=== PATIENT | female | born 1970 | race Two or more races ===

== ENCOUNTER 2017-10-05 11:34 | Emergency (ER) | END 2017-10-05 14:21 | disposition home or self-care (01) ==

== ENCOUNTER 2018-08-02 21:30 | Emergency (ER) | payer OTHER ==
[~2018-08-02] VITALS: Ht 157.5 cm; Wt 67.6 kg
[~2018-08-02 21:30] MED LIST: CEPH-443 PO; CETI10CA PO; KETO120S3 TOP; SULF1TAB31 PO; TRIA15CR55 TOP
[2018-08-02 21:55] VITALS: Ht 157.5 cm; Wt 67.6 kg
--- NOTE | 2018-08-02 22:45 | ERD ---
ER Documentation Chief Complaint Chief Complaint L wrist lac today HPI 47-year-old female, right-handed, presents the emergency department, complaining of an accidental self-inflicted laceration on the left wrist that occurred approximately 1 hour prior to arrival while the patient was trying to open a cooking it. The patient denies distal weakness, numbness or tingling, she is able to move all fingers. ROS All systems reviewed and are negative except as per history of present illness. Medications Home Meds Active Scripts Acetaminophen* (Tylenol*) 325 Mg Tablet, 2 TAB PO Q6 PRN for PAIN AND OR ELEVATED TEMP, #20 TAB Prov:SAVITA WEAVER MD 08/02/18 Cephalexin* (Keflex*) 500 Mg Capsule, 500 MG PO BID for 5 Days, CAP Prov:SAVITA WEAVER MD 08/02/18 Sulfamethoxazole/Trimethoprim* (Bactrim Ds* Tablet) 1 Each Tablet, 1 TAB PO BID, #10 TAB Prov:BO GUZMAN PA-C 10/05/17 Cephalexin* (Keflex*) 500 Mg Capsule, 500 MG PO QID for 5 Days, CAP Prov:BO GUZMAN PA-C 10/05/17 Ketoconazole* (Ketoconazole*) 2% - 120 Ml Shampoo, 1 APPLIC TOP DAILY for 14 Days, EA WASH HAIR/SCALP AND RINSE OFF Prov:BO GUZMAN PA-C 10/05/17 Triamcinolone Acetonide (Triamcinolone Acetonide) 0.1% - 15 Gm Cream.gm., 1 APPLIC TOP BID for 14 Days, #1 TUB Prov:BO GUZMAN PA-C 10/05/17 Cetirizine Hcl* (Zyrtec*) 10 Mg Capsule, 10 MG PO DAILY, #30 TAB.CHEW Prov:BO GUZMAN PA-C 10/05/17 Allergies Allergies: Coded Allergies: No Known Allergy (Unverified , 08/02/18) PMhx/Soc Medical and Surgical Hx: pt denies Medical Hx, pt denies Surgical Hx Hx Alcohol Use: No Hx Substance Use: No Hx Tobacco Use: No FmHx Family History: diabetes; No coronary disease Physical Exam Vitals Vital Signs Date Temp Pulse Resp B/P (MAP) Pulse Ox O2 O2 Flow FiO2 Time Delivery Rate 08/02/18 98.5 86 18 146/82 98 21:55 (103) Physical Exam Const: No acute distress Head: Atraumatic Eyes: Normal Conjunctiva ENT: Normal External Ears, Nose and Mouth. Neck: Full range of motion. No meningismus. Resp: Clear to auscultation bilaterally Cardio: Regular rate and rhythm, no murmurs Abd: Soft, non tender, non distended. Normal bowel sounds Skin: Left wrist: 0.5 cm linear laceration, vertical, no active bleeding, no foreign body seen, no nerve or tendon injury. Back: No midline or flank tenderness Ext: No cyanosis, or edema Neur: Awake and alert Psych: Normal Mood and Affect Results 24 hrs Current Medications Medications Dose Sig/Treva Start Time Status Last (Trade) Ordered Route PRN Stop Time Admin Dose Reason Admin Diphtheria/ 0.5 ml ONCE ONCE 08/02/18 DC Tetanus/Acell IM* 23:00 Pertussis 08/02/18 23:01 (Adacel) Procedures/MDM Vital signs stable, low suspicion for tendon injury, open fracture, foreign body. Neurovascular exam intact. Procedure: Laceration repair The procedure was explained and consent obtained. Anesthesia: none Location: Left wrist Tendon/Joint/Nerves: No injury Foreign body: None detected after copious irrigation and exploration Technique: Tissue adhesive Complexity: No subcutaneous sutures/mucosal repair/edge excision Post Closure Length: 0.5 cm The patient tolerated the procedure well without complications. clinical impression and possible complications like infection and a scar where discussed with the patient who agree with management. The patient is stable to be treated outpatient and will be discharged home with a Rx for Keflex and Tylenol, some side effects of prescribed medications (headache, rash, nausea, vomiting, diarrhea, interactions with other medications) were reviewed. The patient was instructed to follow up with the primary care provider in the next 48h. If symptoms persist, worsen or new symptoms develop, then patient should return to the ED immediately. Instructions explained and given directly by me to the patient with acknowledgment and demonstrated understanding. Disclaimer: Inadvertent spelling and grammatical errors are likely due to EHR/dictation software use and do not reflect on the overall quality of patient care. Also, please note that the electronic time recorded on this note does not necessarily reflect the actual time of the patient encounter. Departure Diagnosis: Primary Impression: Laceration of wrist, left Condition: Stable Additional Instructions: Thank you very much for allowing us to participate in your care. Your health and safety is our top priority at [facility]. Call your primary care doctor TOMORROW for an appointment during the next 2-4 days and bring all the information provided. Have prescriptions filled and follow precisely the directions on the label. If the symptoms get worse and your provider is unavailable, return to the Emergency Department immediately. SAVITA WEAVER MD August 02, 2018 22:45
[2018-08-02] MEDS ORDERED: ACET325T33 PO (22:51)
[2018-08-02] MEDS ORDERED: CEPH-443 PO (22:51)
[2018-08-02] MEDS ORDERED: DIPHTH/TET/ACEL PERTUSS (ADULT) 0.5 ML VIAL IM* ONE (23:00)
[2018-08-02 23:30] VITALS: BP 114/79; PULSE 72; RESP 20
== END 2018-08-02 23:40 | disposition home or self-care (01) ==
LOC: FTE 21:30
DX: S61.512A Laceration without foreign body of left wrist, initial encounter (principal); X83.8XXA Intentional self-harm by other specified means, initial encounter; Y92.9 Unspecified place or not applicable; Z23 Encounter for immunization
CPT/HCPCS: 12001; 90471; 90715; Z7502